=== PATIENT | male | born 1960 | race Caucasian/White ===

== ENCOUNTER 2018-01-18 14:16 | Inpatient (IN) | END 2018-01-21 14:25 | disposition home or self-care (01) | DRG 387 ==

== ENCOUNTER 2019-02-22 10:20 | Emergency (ER) | payer OTHER ==
[~2019-02-22] VITALS: Ht 188 cm; Wt 84.6 kg
[~2019-02-22 10:20] MED LIST: BALS750C6 PO; PANT40TA4 PO
[2019-02-22 10:24] VITALS: BP 152/80; PULSE 76; RESP 18; Ht 188 cm; Wt 84.6 kg
[2019-02-22] MEDS ORDERED: SOD CHLORIDE 0.9% 100 ML ONE (12:31)
[2019-02-22] MEDS ORDERED: IOHEXOL 300MG/ML 150 ML BTL ONE (12:31)
--- NOTE | 2019-02-22 16:14 | ERD ---
ER Documentation Chief Complaint Chief Complaint pt has swollen glands x 4 days denies pain HPI History of Present Illness: 58-year-old male with no past medical history coming today with complaint of feeling like his neck is swollen for the past 4 days. Patient reports worsening of symptoms. Patient denies pain. Patient reports feeling tightness in throat as well as globulus-like sensation causing difficulty swallowing. " He just feels internal "patient denies any other type of symptoms. At home pharmacological/nonpharmacological treatment for symptoms: denies Denies social concerns; Denies recent foreign travel ROS All systems reviewed and are negative except as per history of present illness. Medications Home Meds Active Scripts Pantoprazole* (Pantoprazole*) 40 Mg Tablet.dr, 40 MG PO DAILY@06, #30 4 Refills Prov:NADIYA RUTLEDGE S. 01/21/18 Balsalazide Disodium (Balsalazide Disodium) 750 Mg Capsule, 2250 MG PO TID, #90 CAP 4 Refills Prov:RYLIE RUTLEDGEP S. 01/21/18 Allergies Allergies: Coded Allergies: No Known Allergy (Unverified , 01/18/18) PMhx/Soc History of Surgery: Yes Anesthesia Reaction: No Hx Neurological Disorder: No Hx Respiratory Disorders: No Hx Cardiac Disorders: No Hx Psychiatric Problems: No Hx Miscellaneous Medical Probl: No Hx Alcohol Use: Yes Hx Substance Use: No Hx Tobacco Use: No FmHx Family History: No coronary disease Physical Exam Vitals Vital Signs Date Temp Pulse Resp B/P (MAP) Pulse Ox O2 O2 Flow FiO2 Time Delivery Rate 02/22/19 98.4 76 18 152/80 100 10:24 (104) Physical Exam Const: No acute distress Head: Atraumatic Eyes: Normal Conjunctiva ENT: Normal External Ears, Nose and Mouth. Neck: Full range of motion. No meningismus. Resp: Clear to auscultation bilaterally Cardio: Regular rate and rhythm, no murmurs Abd: Soft, non tender, non distended. Normal bowel sounds Skin: No petechiae or rashes Back: No midline or flank tenderness Ext: No cyanosis, or edema Neur: Awake and alert Psych: Normal Mood and Affect Result Diagram: 02/22/19 1130 02/22/19 1130 Results 24 hrs Laboratory Tests Test 02/22/19 11:30 White Blood Count 5.0 10^3/ul Red Blood Count 4.64 10^6/ul Hemoglobin 13.8 g/dl Hematocrit 41.5 % Mean Corpuscular Volume 89.4 fl Mean Corpuscular Hemoglobin 29.7 pg Mean Corpuscular Hemoglobin Concent 33.3 g/dl Red Cell Distribution Width 12.3 % Platelet Count 178 10^3/UL Mean Platelet Volume 9.4 fl Immature Granulocytes % 0.200 % Neutrophils % 57.1 % Lymphocytes % 32.3 % Monocytes % 8.4 % Eosinophils % 1.8 % Basophils % 0.2 % Nucleated Red Blood Cells % 0.0 /100WBC Immature Granulocytes # 0.010 10^3/ul Neutrophils # 2.9 10^3/ul Lymphocytes # 1.6 10^3/ul Monocytes # 0.4 10^3/ul Eosinophils # 0.1 10^3/ul Basophils # 0.0 10^3/ul Nucleated Red Blood Cells # 0.0 10^3/ul Sodium Level 142 mmol/L Potassium Level 4.7 mmol/L Chloride Level 103 mmol/L Carbon Dioxide Level 30 mmol/L Anion Gap 9 Blood Urea Nitrogen 17 mg/dl Creatinine 0.95 mg/dl Est Glomerular Filtrat Rate mL/min > 60 mL/min Glucose Level 89 mg/dl Calcium Level 9.6 mg/dl Total Bilirubin 0.9 mg/dl Direct Bilirubin 0.00 mg/dl Indirect Bilirubin 0.9 mg/dl Aspartate Amino Transf (AST/SGOT) 28 IU/L Alanine Aminotransferase (ALT/SGPT) 33 IU/L Alkaline Phosphatase 73 IU/L Total Protein 7.6 g/dl Albumin 4.7 g/dl Globulin 2.90 g/dl Albumin/Globulin Ratio 1.62 Current Medications Medications Dose Sig/Renny Start Time Status Last (Trade) Ordered Route PRN Stop Time Admin Dose Reason Admin IV Flush 10 ml STK-MED 02/22/19 DC (NS 10 ml) ONCE .ROUTE 12:02/22/19 12:32 Sodium 100 ml @ ud STK-MED 02/22/19 DC 02/22/19 Chloride ONCE .ROUTE 13:06 02/22/19 12:32 Iohexol 150 ml STK-MED 02/22/19 DC 02/22/19 (Omnipaque ONCE .ROUTE 12 13:08 300mg/ ml) 02/22/19 12:32 Procedures/MDM ED course includes a thorough examination and history. Medications: -- Imaging: EKG, ct neck Labs: CBC, CMP Low suspicion for life-threatening medical emergency. Low suspicion for HEENT medical emergency that requires hospitalization or immediate surgical interv ention. Suspicion for airway compromise. Suspicion for infectious process. Otherwise healthy patient presenting with constellation of symptoms likely representing dysphasia/difficulty swallowing as characterized by history, physical exam findings. No respiratory distress, otherwise relatively well appearing and nontoxic. Upon reassessment, patient denies pain or difficulty breathing. Patient tolerating p.o. fluids during ER visit. Patient educated on diagnoses, prescriptions, follow-up care, return precautions. Strict return precautions given for worsening condition; questions answered discharge. Disposition for discharge with followup in 2 days with PCP/clinic possible referral to ENT may be needed.; . Departure Diagnosis: Primary Impression: Globus sensation Additional Impression: Difficulty swallowing Dysphagia type: unspecified Qualified Codes: R13.10 - Dysphagia, unspecified Condition: Stable Patient Instructions: Understanding Dysphagia Referrals: [facility] YOU HAVE RECEIVED A MEDICAL SCREENING EXAM AND THE RESULTS INDICATE THAT YOU DO NOT HAVE A CONDITION THAT REQUIRES URGENT TREATMENT IN THE EMERGENCY DEPARTMENT. FURTHER EVALUATION AND TREATMENT OF YOUR CONDITION CAN WAIT UNTIL YOU ARE SEEN IN YOUR DOCTORS OFFICE WITHIN THE NEXT 1-2 DAYS. IT IS YOUR RESPONSIBILITY TO MAKE AN APPOINTMENT FOR FOLOW-UP CARE. IF YOU HAVE A PRIMARY DOCTOR --you should call your primary doctor and schedule an appointment IF YOU DO NOT HAVE A PRIMARY DOCTOR YOU CAN CALL OUR PHYSICIAN REFERRAL HOTLINE AT IF YOU CAN NOT AFFORD TO SEE A PHYSICIAN YOU CAN CHOSE FROM THE FOLLOWING [facility] [address] [facility] [address] [facility] [facility] [address] [facility] [address] [facility] [address] [facility]. [facility]. [address] [facility]. [facility] YOU HAVE RECEIVED A MEDICAL SCREENING EXAM AND THE RESULTS INDICATE THAT YOU DO NOT HAVE A CONDITION THAT REQUIRES URGENT TREATMENT IN THE EMERGENCY DEPARTMENT. FURTHER EVALUATION AND TREATMENT OF YOUR CONDITION CAN WAIT UNTIL YOU ARE SEEN IN YOUR DOCTORS OFFICE WITHIN THE NEXT 1-2 DAYS. IT IS YOUR RESPONSIBILITY TO MAKE AN APPOINTMENT FOR FOLOW-UP CARE. IF YOU HAVE A PRIMARY DOCTOR --you should call your primary doctor and schedule and appointment IF YOU DO NOT HAVE A PRIMARY DOCTOR YOU CAN CALL OUR PHYSICIAN REFERRAL HOTLINE AT . IF YOU CAN NOT AFFORD TO SEE A PHYSICIAN YOU CAN CHOSE FROM THE FOLLOWING [facility] INSTITUTIONS: [facility] [address] [place] [address] [facility] [address] [place] [address] [facility] [address] [place] [address] Additional Instructions: Thank you very much for allowing us to participate in your care. Your health and safety is our top priority at [facility]. It is important to read all discharge instructions and education provided in your discharge packet. *You have so no signs of infection at this time. There are no palpable swollen glands. Your CAT scan did not show any abnormal results. Is very important follow-up with your primary care doctor and get a referral to ENT if needed, if YOU still HAVE the same complaint.* Call your primary care doctor TOMORROW for an appointment during the next 2-4 days and bring all the information. If the symptoms get worse and your provider is unavailable, return to the Emergency Department immediately. DANNIE VILLEDA NP Feb 22, 2019 16:14
== END 2019-02-22 14:14 | disposition home or self-care (01) ==
LOC: FTE 10:20
DX: F45.8 Other somatoform disorders (principal)
CPT/HCPCS: 70491; 80053; 85025; 93005; Q9967; Z7502; Z7610